=== PATIENT | female | born 1945 | race Caucasian/White ===

== ENCOUNTER 2023-10-26 12:31 | Outpatient (OUT) | payer MEDICARE, SELFPAY ==
--- NOTE | 2023-10-26 12:56 | MR_ITS ---
[address] [address] Patient Name: KAREN NICOLE MRN: [facility]:[id number] date: 1945 Sex: F Assigned Patient Location: MRI Current Patient Location: MRI Accession/Order Number: [id number] Exam Date: 10/26/2023 13:00 Report Date: 10/26/2023 14:31 At the request of: DIAMANTE ALMODOVAR Procedure: MR lumbar spine wo con EXAMINATION: MR lumbar spine wo con HISTORY: Degenerative dics Disease M51.36, Scoliosis M41.9 COMPARISON: No relevant comparison available. TECHNIQUE: A variety of imaging planes and parameters were utilized for visualization of suspected pathology. FINDINGS: For the purposes of numbering, sagittal T2 image # 9 extends from the T10 vertebral body superiorly to the S3 level inferiorly. PARASPINAL AREA: Normal with no visible mass. BONES: Rotatory levoscoliosis of the thoracolumbar spine. 4 mm retrolisthesis of T12 on L1. Severe diffuse degenerative spondylosis and facet osteoarthropathy. CORD/CAUDA EQUINA: Normal caliber, contour, and signal intensity. DISC LEVELS: 12-L1: Disc collapse with moderate diffuse disc/osteophyte complex and facet osteoarthropathy. Segment flavum hypertrophy. Moderate to severe trefoil narrowing of the central canal. Moderate to severe bilateral foraminal stenosis L1-L2: Severe disc space narrowing with right-sided collapse and endplate sclerosis moderate diffuse disc/osteophyte complex and facet osteoarthropathy. Moderate trefoil narrowing of the central canal. No right, moderate left foraminal stenosis L2-L3: Disc collapse and effusion on the right. Desiccation on the left. Mild diffuse disc/osteophyte complex. No central or foraminal stenosis L3-L4: Moderate to severe disc space narrowing with collapse on the right and endplate sclerosis. Moderate diffuse disc/osteophyte complex and ligamentum flavum hypertrophy. Trefoil narrowing of the central canal. Moderate right foraminal stenosis L4-L5: Disc collapse with endplate sclerosis. Moderate diffuse disc/osteophyte complex and ligamentum flavum hypertrophy and facet osteoarthropathy. Moderate central canal stenosis. Moderate right and severe left foraminal stenosis L5-S1: Disc collapse with endplate sclerosis. Diffuse disc/osteophyte complex and ligamentum flavum hypertrophy. No central canal stenosis. Moderate right and mild left foraminal stenosis MR/MR lumbar spine wo con IMPRESSION: Extensive degenerative changes with central and foraminal stenosis at multiple levels as detailed above Rotatory thoracolumbar levoscoliosis Electronically authenticated by: SHAD NOWAK Date: 10/26/2023 14:31
== END 2023-10-26 12:32 | disposition home or self-care (01) ==
LOC: MRI 12:38
PROVIDERS: PCP Family Medicine; Visit Provider Specialist/Technologist Athletic Trainer
DX: M51.36 Other intervertebral disc degeneration, lumbar region (principal); M41.9 Scoliosis, unspecified
CPT/HCPCS: 72148